=== PATIENT | female | born 1975 | race Caucasian/White ===

== ENCOUNTER 2025-05-05 03:54 | Emergency (ER) | payer OTHER ==
--- NOTE | 2025-05-05 04:05 | ELECTROCARDIOGRAPH REPORT ---
[facility] Test Date: 2025-05-05 Test Time: 04:03:19 Pat Name: DOROTA ROBLES Department: EMERGENCY ROOM Room: Gender: F Industrial Technology Teacher: TERESA : 1975 Requested By: JAYLAN BANEGAS Order Number: [id number] Reading MD: Dr. Zev Enriquez Measurements Intervals [place] Rate: 100 P: 83 LA: 114 QRS: 79 QRSD: 78 T: 28 QT: 334 QTc: 431 Interpretive Statements Sinus tachycardia Right atrial enlargement Borderline T wave abnormalities Electronically Signed On 05-05-2025 9:04:[address] Zev Enriquez Please click the below link to view image of tracing.
--- NOTE | 2025-05-05 04:54 | RADIOLOGY REPORT ---
CHEST RADIOGRAPH INDICATION: CP TECHNIQUE: Single frontal view of the chest was obtained COMPARISON: None FINDINGS: Lines and Tubes: None Lungs: No focal consolidation. Pleura: No effusion. No pneumothorax. Cardiomediastinal contours: Unremarkable Bones: No acute osseous abnormality. IMPRESSION: 1. No acute cardiopulmonary disease.
[2025-05-05 05:03] LABS: MEAN PLATELET VOLUME 7.7 FL (7.4-10.4); RED CELL DISTRIBUTION WIDTH 13.2 % (11.5-14.5)
--- NOTE | 2025-05-05 05:08 | Physician Documentation ---
History of Present Illness ~ Chief Complaint: Vaginal Bleeding Stated Complaint: VAGINAL BLEEDING Time Seen by MD: 05:07 Mode of Arrival: POV HPI Patient presents to the emergency room with two days of vaginal bleeding. Patient is perimenopausal and that has not had menstrual cycle in six months. She is feeling weak and dizzy. She is not on blood thinners Last Menstrual Period: May 05, 2025 Medication Reconciliation Allergies: Uncoded Allergies: SULFA (Allergy, Unknown, 05/05/25) Scheduled Norgestimate-Ethinyl Estradiol (Sprintec 28 Day Tablet), 1 TAB PO BID Past Medical History Last Menstrual Period: May 05, 2025 Review of Systems ROS All review of systems negative except as per HPI Physical Exam Vital Signs: Temperature: 97.8, Source: Oral, Heart Rate: 104, Respiratory Rate: 17, BP: 124/76, Pulse Oximetry: 100 Oxygen Flow Rate: 0 Physical Exam General: Patient is awake, alert, oriented x4 in no acute distress , anxious Head: Normocephalic and atraumatic. Eyes: Conjunctival normal. EOMI. PERRL. ENT: Mucous membranes moist. Neck: Supple, trachea is midline. Chest: Clear to auscultation bilaterally without rales, rhonchi, or wheezes. T here is no accessory muscle use or retractions. Cardiac: RRR without murmurs, gallops, or rubs. Abd: Soft, nondistended, nontender, with normoactive bowel sounds. No guarding, rebound, or rigidity. Progress Results/Orders Results/Orders Orders - ERIBERTO AGUILA MD Chest,Single View (05/05/25 04:15) Monitor (05/05/25 04:04) Saline Lock (05/05/25 04:04) Oxygen (05/05/25 04:04) Electrocardiogram (05/05/25 04:04) Completed Orders - ERIBERTO AGUILA MD Chest,Single View (05/05/25 04:15) Cbc/Diff (05/05/25 04:04) BMP (05/05/25 04:04) PBNP (05/05/25 04:04) Electrocardiogram (05/05/25 04:04) Hs Troponin I W Calculations (05/05/25 04:04) Type And Screen (05/05/25 04:04) Vital Signs 05/05/25 05/05/25 05/05/25 03:57 04:14 05:40 Temp 97.8 98.4 Pulse 104 84 Resp 18 17 17 B/P (MAP) 124/76 131/76 Pulse Ox 100 99 O2 Flow Rate 0 Laboratory Tests Test 05/05/25 04:35 White Blood Count 5.0 Red Blood Count 3.89 L Hemoglobin 11.8 L Hematocrit 35.0 Mean Corpuscular Volume 89.9 Mean Corpuscular Hemoglobin 30.3 Mean Corpuscular Hemoglobin Concent 33.7 Red Cell Distribution Width 13.2 Platelet Count 273 Mean Platelet Volume 7.7 Neutrophils (%) (Auto) 67.2 Lymphocytes (%) (Auto) 22.8 Monocytes (%) (Auto) 8.3 Eosinophils (%) (Auto) 1.2 Basophils (%) (Auto) 0.5 Neutrophils # (Auto) 3.3 Lymphocytes # (Auto) 1.1 Monocytes # (Auto) 0.4 Eosinophils # (Auto) 0.1 Basophils # (Auto) 0.0 CBC Comment Sodium Level 137 Potassium Level 4.1 Chloride Level 107 Carbon Dioxide Level 20.9 L Anion Gap 9 Blood Urea Nitrogen 27 H Creatinine 0.76 Estimated GFR/1.73 m2 80 BUN/Creatinine Ratio 35.5 H Glucose Level 147 H Calcium Level 8.1 L Troponin I High Sensitivity < 4 L Troponin I High Sens Percent Delta Troponin I Hi Sens Absolute Change Pro-B-Type Natriuretic Peptide < 30 Albumin 3.4 Chemistry Comments EKG/XRAY/CT/US/VASC/MRI EKG : Additional Comment EKG interpreted by myself shows time of 0403, rate 100, sinus tachycardia, normal axis, no ST changes Medical Decision Making Additional information obtaine: N/A Findings Patient presents to the emergency room with menorrhagia/dysfunctional uterine bleeding that has per HPI. Differentials include but are not limited to uterine cancer, breakthrough bleeding, anemia, ACS. Given patient's report of dizziness that has concern for possible ACS involvement however EKG and troponins were reassuring. Very mild anemia and given patient's history of two days of significant bleeding I do not feel she is in danger of bleeding out at this juncture. We will give treatment for dysfunctional uterine bleeding with instructions to follow up with her doctor that has I discussed with her this could represent possible uterine cancer however given her perimenopausal state this may be just breakthrough bleeding. Urinary Diff Dx:Considerations: Include: AAA, , Aortic dissection, Appendicitis, Bowel obstruction, Cholelithiasis, Choleangitis, DJD, Ectopic , Hepatitis, HNP, Impaction, Intrauterine , Musculoskeletal pain, Ovarian torsion, Pancreatitis, PID, Post-Op complication, Pyelonephritis, Renal failure, Strain, Urinary Obstruction, Urolithiasis, Urinary retention, UTI, Vaginitis, Other Genital Diff Dx:Considerations: Include: -Complete, -Incomplet e, -Inevitable, Ablortion-Missed, -Threatened, Abruptio placentae, Bartholin abscess, Bartholin cyst, Blood loss anemia, Constipation, Cervicitis, Dsymenorrhea, Ectopic , Foreign body, Hormonal, Hidradenitis suppurativa, Intrauterine , Menorrhagia, Menometrorrhagia, Menstrual bleeding, Myomatous uterus, Perianal abscess, Physiologic discharge, Pinworms, PID, Placenta previa, , Precipitous Hct, Trauma, UTI, Vaginitis(osis)-Atrophic, Vaginitis, Vaginitis(osis)-Bacterial, Vaginitis(osis)- Candidal, Vaginitis(osis)-Contact, Vaginitis(osis)-Herpes, Vaginitis(osis)- Trich., Other Departure Disposition: 01 HOME / SELF CARE / HOMELESS Impression: Primary Impression: Menorrhagia Condition: Fair Discharge Instructions: Dysfunctional Uterine Bleeding Additional Instructions: Follow up with your doctor for possible investigation into dysfunctional uterine bleeding. Referrals: NO PRIMARY CARE PROVIDER (PCP) Prescriptions Norgestimate-Ethinyl Estradiol (Sprintec 28 Day Tablet) 0.25 Mg-0.035 Mg Tablet 1 TAB PO BID, #1 PKG take one tablet 3 times a day until bleeding subdues then one tablet daily until bleeding stops Prov: ERIBERTO AGUILA MD 05/05/25 Signature Scribe Signature: No scribe Attestation: The note accurately reflects work and decisions made by me.Eriberto Aguila MD 05/05/25 05:31 ERIBERTO AGUILA MD May 05, 2025 05:08
[2025-05-05 05:27] LABS: CREATININE 0.76 MG/DL (0.40-0.90); PRO BRAIN NATRIURETIC PEPTIDE < 30 PG/ML (0-125); TOTAL CARBON DIOXIDE 20.9 MMOL/L (24-32); eGFR 80 ML/MIN
[2025-05-05] MEDS ORDERED: NORG1TAB12 PO (05:31)
[2025-05-05 05:40] VITALS: BP 131/76; PULSE 84; RESP 17; TEMP 98.4; O2SAT 99
== END 2025-05-05 05:50 | disposition home or self-care (01) ==
LOC: ER 03:55
DX: N92.0 Excessive and frequent menstruation with regular cycle (principal); R06.2 Wheezing; Z79.899 Other long term (current) drug therapy
CPT/HCPCS: 36415; 71045; 80048; 83880; 84484; 85025; 86885; 86900; 86901; 93005; 99285